=== PATIENT | female | born 1945 | race Caucasian/White ===

== ENCOUNTER 2017-06-17 07:25 | Emergency (ER) | payer MEDICARE ==
[~2017-06-17] VITALS: Ht 157.5 cm; Wt 123.0 kg
[2017-06-17 07:29] VITALS: BP 170/96; PULSE 67; RESP 22; TEMP 97.8; O2SAT 96
--- NOTE | 2017-06-17 07:52 | PD ---
HPI Chief Complaint: Dizziness Time Seen by Provider: 07:36 Travel History International Travel<30 days: No Contact w/Intl Traveler<30days: No Traveled to known affect area: No History of Present Illness HPI Patient is a 72-year-old female presents emergency department for evaluation of dizziness. She states it feels like the room is spinning and does not endorse any presyncopal symptoms. She states that she was seen in urgent care yesterday diagnosed bronchitis and sinusitis started with an antibiotic. She denies any fevers or ear pain but states that she is having ongoing dizziness which is intermittent, she states she woke up with it this morning. Denies any headache denies any vomiting but does endorse some mild nausea. No difficulty with ambulation. States symptoms are moderate, context as above, associated signs symptoms as above, waxing and waning. PFSH Past Medical History Narrative Medical Hypertension, asthma, depression. ?: Not Past Surgical History Narrative Surgical tonsillectomy, appendectomy, tubal ligation, Family History Family History: Negative Social History Alcohol Use: No Tobacco Use: No Allergies-Medications (Allergen,Severity, Reaction): Coded Allergies: No Allergy Information Available (Unverified , 06/17/17) Reported Meds & Prescriptions Reported Meds & Active Scripts Active Meclizine (Meclizine HCl) 25 Mg Tab 25 Mg PO TID PRN Reported Prednisone 50 Mg Tab 50 Mg PO DAILY Cipro (Ciprofloxacin HCl) 500 Mg Tab 500 Mg PO BID Montelukast (Montelukast Sodium) 10 Mg Tab 10 Mg PO HS Omeprazole 20 Mg Tab 20 Mg PO TID Medroxyprogesterone Acetate 5 Mg Tab 2.5 Mg PO DAILY Start day 21 Ditropan (Oxybutynin Chloride) 5 Mg Tab 10 Mg PO Q12HR Citalopram (Citalopram Hydrobromide) 20 Mg Tab 20 Mg PO DAILY Celecoxib 200 Mg Cap 200 Mg PO BID Verapamil ER (Verapamil HCl) 180 Mg Tab 180 Mg PO BID Claritin-D 12 HR (Loratadine-Pseudoephedrine 12 HR) 5-120 Mg Tab 1 Tab PO BID Review of Systems Except as stated in HPI: all other systems reviewed are Neg Physical Exam Narrative GENERAL: Well-developed well-nourished, no obvious distress. SKIN: Focused skin assessment warm/dry. HEAD: Atraumatic. Normocephalic. EYES: Pupils equal and round. No scleral icterus. No injection or drainage. ENT: No nasal bleeding or discharge. Mucous membranes pink and moist. TMs clear bilaterally, CLEAR moist NECK: Trachea midline. No JVD. CARDIOVASCULAR: Regular rate and rhythm. No murmur appreciated. RESPIRATORY: No accessory muscle use. Clear to auscultation. Breath sounds equal bilaterally. GASTROINTESTINAL: Abdomen soft, non-tender, nondistended. Hepatic and splenic margins not palpable. MUSCULOSKELETAL: No obvious deformities. No clubbing. No cyanosis. No edema. NEUROLOGICAL: Awake and alert and oriented 4, cranial nerves II through XII are grossly intact and nonfocal, 5 out of 5 strength in all 4 extremity's, cerebellar testing with finger-nose finger and heel eid are normal bilaterally. Patient ambulates with an even narrow based gait.. PSYCHIATRIC: Appropriate mood and affect; insight and judgment normal. Data Data Last Documented VS Orders Orders Electrocardiogram (06/17/17 07:50) Complete Blood Count With Diff (06/17/17 07:50) Comprehensive Metabolic Panel (06/17/17 07:50) Prothrombin Time / Inr (Pt) (06/17/17 07:50) Act Partial Throm Time (Ptt) (06/17/17 07:50) Troponin I (06/17/17 07:50) Chest, Single Ap (06/17/17 07:50) Ecg Monitoring (06/17/17 07:50) Iv Access Insert/Monitor (06/17/17 07:50) Oximetry (06/17/17 07:50) Oxygen Administration (06/17/17 07:50) Sodium Chloride 0.9% Flush (Ns Flush) (06/17/17 08:00) Ondansetron Inj (Zofran Inj) (06/17/17 08:00) Sodium Chlorid 0.9% 500 Ml Inj (Ns 500 M (06/17/17 08:00) Lorazepam Inj (Ativan Inj) (06/17/17 08:15) Ct Brain W/O Iv Contrast(Rout) (06/17/17 ) Meclizine (Antivert) (06/17/17 11:30) Ed Discharge Order (06/17/17 12:06) Labs Laboratory Tests Test 06/17/17 08:04 White Blood Count 12.7 TH/MM3 Red Blood Count 4.63 MIL/MM3 Hemoglobin 13.8 GM/DL Hematocrit 40.7 % Mean Corpuscular Volume 88.1 FL Mean Corpuscular Hemoglobin 29.8 PG Mean Corpuscular Hemoglobin Concent 33.8 % Red Cell Distribution Width 14.2 % Platelet Count 318 TH/MM3 Mean Platelet Volume 9.3 FL Neutrophils (%) (Auto) 73.7 % Lymphocytes (%) (Auto) 14.4 % Monocytes (%) (Auto) 11.4 % Eosinophils (%) (Auto) 0.0 % Basophils (%) (Auto) 0.5 % Neutrophils # (Auto) 9.3 TH/MM3 Lymphocytes # (Auto) 1.8 TH/MM3 Monocytes # (Auto) 1.4 TH/MM3 Eosinophils # (Auto) 0.0 TH/MM3 Basophils # (Auto) 0.1 TH/MM3 CBC Comment DIFF FINAL Differential Comment Prothrombin Time 11.1 SEC Prothromb Time International Ratio 1.1 RATIO Activated Partial Thromboplast Time 26.2 SEC Blood Urea Nitrogen 17 MG/DL Creatinine 1.01 MG/DL Random Glucose 132 MG/DL Total Protein 7.6 GM/DL Albumin 2.9 GM/DL Calcium Level 9.4 MG/DL Alkaline Phosphatase 120 U/L Aspartate Amino Transf (AST/SGOT) 18 U/L Alanine Aminotransferase (ALT/SGPT) 24 U/L Total Bilirubin 0.4 MG/DL Sodium Level 138 MEQ/L Potassium Level 3.7 MEQ/L Chloride Level 105 MEQ/L Carbon Dioxide Level 23.3 MEQ/L Anion Gap 10 MEQ/L Estimat Glomerular Filtration Rate 54 ML/MIN Troponin I LESS THAN 0.02 NG/ML MDM Medical Decision Making Medical Screen Exam Complete: Yes Emergency Medical Condition: Yes Differential Diagnosis vertigo, cerebellar stroke unlikely, intracranial abnormality seems unlikely, sinusitis, laryngitis. Narrative Course Patient seen and examined by an outside provider yesterday, this time I recommended completing her workup a CAT scan of her head to rule out any intracranial abnormalities. None are seen. Highly doubt that the patient's symptoms are being caused by a central vertigo, ambulance with an even narrow based gait, cerebellar testing is normal. She is feeling better after medications. Discussed need follow-up the primary care physician and return to ED criteria. She stable for discharge. Diagnosis Primary Impression: Vertigo Med/Other Pt SpecificInfo: Prescription(s) given Scripts Meclizine (Meclizine) 25 Mg Tab 25 MG PO TID Y for VERTIGO, #20 TAB 0 Refills Prov: Jonathon Polk MD 06/17/17 Disposition: 01 DISCHARGE HOME Condition: Stable Jonathon Polk MD Jun 17, 2017 07:52
[2017-06-17] MEDS ORDERED: SODIUM CHLORID 0.9% 500 ML INJ 500 ML IV ONE (08:00)
[2017-06-17] MEDS ORDERED: SODIUM CHLORIDE 0.9% FLUSH 10 ML FLUSH IVF PRN (08:00)
[2017-06-17] MEDS ORDERED: ONDANSETRON HCL 4 MG/2 ML VIAL IV PUSH ONE (08:00)
[2017-06-17] MEDS ORDERED: LORazepam 2 MG/ML VIAL IV PUSH ONE (08:15)
[2017-06-17 08:21] LABS: AUTOMATED NEUTROPHIL # 9.3 TH/MM3 (1.8-7.7); BASOPHIL # 0.1 TH/MM3 (0-0.2); BASOPHIL % 0.5 % (0.0-2.0); HEMATOCRIT 40.7 % (35.0-46.0); HEMOGLOBIN 13.8 GM/DL (11.6-15.3); LYMPH % 14.4 % (9.0-44.0); LYMPHOCYTE # 1.8 TH/MM3 (1.0-4.8); MEAN CELL VOLUME 88.1 FL (80.0-100.0); MEAN CORPUSCULAR HEMOGLOBIN 29.8 PG (27.0-34.0); MEAN CORPUSCULAR HGB CONC 33.8 % (32.0-36.0); MEAN PLATELET VOLUME 9.3 FL (7.0-11.0); MONO % 11.4 % (0.0-8.0); MONOCYTE # 1.4 TH/MM3 (0-0.9); NEUT % 73.7 % (16.0-70.0); PLATELET COUNT 318 TH/MM3 (150-450); RED BLOOD COUNT 4.63 MIL/MM3 (4.00-5.30); RED CELL DISTRIBUTION WIDTH 14.2 % (11.6-17.2); WHITE BLOOD COUNT 12.7 TH/MM3 (4.0-11.0)
--- NOTE | 2017-06-17 08:21 | RADRPT ---
EXAM DATE/TIME: 06/17/2017 08:01 [facility] COMPARISON: No previous studies available for comparison. INDICATIONS : Cough and dizziness. MEDICAL HISTORY : Hypertension. Asthma. SURGICAL HISTORY : None. ENCOUNTER: Initial ACUITY: 3 days PAIN SCORE: 0/10 LOCATION: Bilateral chest FINDINGS: A single view of the chest demonstrates the lungs to be symmetrically aerated without evidence of mas s, infiltrate or effusion. The cardiomediastinal contours are unremarkable. Osseous structures are intact. CONCLUSION: No acute disease. Emiliano Muñoz MD on June 17, 2017 at 8:19 Board Certified Radiologist. This report was verified electronically.
[2017-06-17 08:32] LABS: INTERNATIONAL NORMALIZED RATIO 1.1 RATIO; PROTHROMBIN TIME - PATIENT 11.1 SEC (9.8-11.6)
[2017-06-17 08:41] LABS: ALBUMIN 2.9 GM/DL (3.4-5.0); ALT (GPT) 24 U/L (10-53); AST (GOT) 18 U/L (15-37); BICARBONATE 23.3 MEQ/L (21.0-32.0); BLOOD UREA NITROGEN 17 MG/DL (7-18); CALCIUM 9.4 MG/DL (8.5-10.1); CHLORIDE 105 MEQ/L (98-107); CREATININE 1.01 MG/DL (0.50-1.00); GLOMERULAR FILTRATION RATE 54 ML/MIN (>89); GLUCOSE,RANDOM 132 MG/DL (74-106); SODIUM (NA) 138 MEQ/L (136-145)
[2017-06-17 08:44] LABS: ALKALINE PHOSPHATASE 120 U/L (45-117); TOTAL BILIRUBIN ADULT 0.4 MG/DL (0.2-1.0); TOTAL PROTEIN 7.6 GM/DL (6.4-8.2); TROPONIN I LESS THAN 0.02 NG/ML (0.02-0.05)
[2017-06-17 09:00] VITALS: BP 178/84; PULSE 56; RESP 22; O2SAT 97
[2017-06-17 10:47] VITALS: BP 175/75; PULSE 57; RESP 22; O2SAT 96
[2017-06-17] MEDS ORDERED: CELE1CAP8 PO (11:11)
[2017-06-17] MEDS ORDERED: CLAR5TAB9 PO (11:11)
[2017-06-17] MEDS ORDERED: VERA1TAB10 PO (11:11)
[2017-06-17] MEDS ORDERED: CITA20TA4 PO (11:11)
[2017-06-17] MEDS ORDERED: OXYB5TAB8 PO (11:11)
[2017-06-17] MEDS ORDERED: MEDR5TAB3 PO (11:11)
[2017-06-17] MEDS ORDERED: OMEP20TA93 PO (11:11)
[2017-06-17] MEDS ORDERED: MONT10TA4 PO (11:12)
[2017-06-17] MEDS ORDERED: CIPR-9 PO (11:12)
[2017-06-17] MEDS ORDERED: PRED50 PO (11:12)
[2017-06-17] MEDS ORDERED: MECLIZINE HCL 25 MG TAB PO ONE (11:30)
--- NOTE | 2017-06-17 11:56 | RADRPT ---
EXAM DATE/TIME: 06/17/2017 11:43 [facility] COMPARISON: No previous studies available for comparison. INDICATIONS : Dizziness when lying down. Diagnosed with bronchitis yesterday RADIATION DOSE: 38.06 CTDIvol (mGy) MEDICAL HISTORY : Hypertension. SURGICAL HISTORY : Appendectomy. ENCOUNTER: Initial ACUITY: 1 day PAIN SCALE: 0/10 LOCATION: cranial TECHNIQUE: Multiple contiguous axial images were obtained of the head. Using automated exposure control and adj ustment of the mA and/or kV according to patient size, radiation dose was kept as low as reasonably a chievable to obtain optimal diagnostic quality images. DICOM format image data is available electro nically for review and comparison. FINDINGS: CEREBRUM: The ventricles are normal for age. No evidence of midline shift, mass lesion, hemorrhage or acute in farction. No extra-axial fluid collections are seen. POSTERIOR FOSSA: The cerebellum and brainstem are intact. The 4th ventricle is midline. The cerebellopontine angle i s unremarkable. EXTRACRANIAL: The visualized portion of the orbits is intact. SKULL: The calvaria is intact. No evidence of skull fracture. CONCLUSION: Negative noncontrast head CT. Amandeep Trejo MD on June 17, 2017 at 11:53 Board Certified Radiologist. This report was verified electronically.
[2017-06-17] MEDS ORDERED: MECL-62 PO (12:05)
[2017-06-17 12:30] VITALS: BP 167/84
--- NOTE | 2017-06-17 14:01 | EKG ---
Date Performed: 06/17/2017 Time Performed: 08:01:53 PTAGE: 72 years EKG: SINUS BRADYCARDIA WITH OCCASIONAL SUPRAVENTRICULAR PREMATURE COMPLEXES VOLTAGE CRITERIA FOR LVH ABNORMAL ECG NO PREVIOUS TRACING DOCTOR: Jean Carlos Delacruz Interpretating Date/Time 06/17/2017 13:59:40
== END 2017-06-17 12:40 | disposition home or self-care (01) ==
LOC: NEPE 07:25
DX: R42 Dizziness and giddiness (principal); R00.1 Bradycardia, unspecified; I10 Essential (primary) hypertension; J45.909 Unspecified asthma, uncomplicated; Z79.899 Other long term (current) drug therapy
CPT/HCPCS: 70450; 71010; 80053; 84484; 85025; 85610; 85730; 93005; 96361; 96374; 96375; 99285; J2060; J2405; J7040